=== PATIENT | male | born 1955 | race Caucasian/White ===

== ENCOUNTER 2020-12-22 21:55 | Emergency (ER) | payer SELFPAY ==
[~2020-12-22] VITALS: Ht 190.5 cm; Wt 98.8 kg
[~2020-12-22 21:55] MED LIST: AMOX-291 PO; CYAN100T22 PO
[2020-12-22 22:11] VITALS: BP 130/81
== END 2020-12-22 23:26 | disposition home or self-care (01) ==
LOC: ED 22:00
DX: B34.9 Viral infection, unspecified (principal); Z20.822 Contact with and (suspected) exposure to COVID-19; R05 Cough
CPT/HCPCS: 71045; 99284; U0003

== ENCOUNTER 2021-03-16 08:29 | Emergency (ER) | payer MEDICARE ==
[~2021-03-16] VITALS: Ht 188 cm; Wt 94.2 kg
[2021-03-16 09:56] LABS: BASOPHILS % (AUTO) 1 % (0-1); EOSINOPHILS % (AUTO) 7 % (1-7); LYMPHOCYTES % (AUTO) 33 % (22-44); MEAN CORPUSCULAR HEMOGLOBIN 43.5 pg (27.5-34.5); MEAN CORPUSCULAR HGB CONC 34.7 g/dL (33.2-36.2); MEAN PLATELET VOLUME 8.1 fL (7.4-10.4); MONOCYTES % (AUTO) 13 % (2-9); NEUTROPHILS % (AUTO) 47 % (42-75); PLATELET COUNT 224 x10^3/uL (130-400); RED BLOOD COUNT 3.17 x10^6/uL (4.38-5.82); RED CELL DISTRIBUTION WIDTH 16.7 % (9.4-14.8)
[2021-03-16 10:05] LABS: ANION GAP 5 mmol/L (5-15); CALCIUM 8.8 mg/dL (8.5-10.1); CHLORIDE 114 mmol/L (98-107)
[2021-03-16 10:07] LABS: CREATININE 1.48 mg/dL (0.7-1.3)
[2021-03-16 10:16] LABS: ANISOCYTOSIS 1+
[2021-03-16 10:17] LABS: <PLATELET ESTIMATE> ADEQUATE; <PLT MORPHOLOGY> NORMAL PLT MORPH
[2021-03-16 10:55] VITALS: BP 114/82
== END 2021-03-16 10:57 | disposition home or self-care (01) ==
LOC: ED 08:45
DX: J18.9 Pneumonia, unspecified organism (principal)
CPT/HCPCS: 36415; 71045; 80048; 85025; 99284